=== PATIENT | male | born 1975 | race Caucasian/White ===

== ENCOUNTER 2024-12-01 20:23 | Emergency (ER) | payer MEDICARE, OTHER ==
[2024-12-01] MEDS: PANTOPRAZOLE 40 MG/10 ML VIAL IVP ONE (21:33)
[2024-12-01] MEDS: ONDANSETRON 4 MG/2 ML VIAL IVP STA ×2 (21:37→22:49)
[2024-12-01] MEDS: MORPHINE SULFATE 4 MG/ML SYRINGE IVP STA (21:38)
--- NOTE | 2024-12-01 21:46 | ED ---
General Adult HPI - General Chief complaint: GI Bleed Stated complaint: Abd Pain, Lightheaded Time Seen by Provider: 12/01/24 20:50 Source: patient Mode of arrival: ambulatory Limitations: no limitations - History of Present Illness Initial comments: Patient is a 49-year-old gentleman past medical history of bleeding peptic ulcer presenting today for concerns for GI bleed. States that he felt nauseous earlier an began experiencing burning epigastric pain and had an episode of nonbloody nonbilious emesis. He then later had a single soft black tarry stool. Shortly after this he noticed some bright red blood running into the toilet, pt estimates about 1/2 teaspoon of blood. Noted associated lightheadedness so was brought to the ER. States he had a ruptured peptic ulcer a few years ago while he was in [place]. He denies frequent NSAID use or alcohol use. Is not on blood thinners. Denies fevers. Endorses chills. Currently denies dizziness /lightheadedness, shortness of breath, chest pain. Denies dysuria or hematuria. No diarrhea. Denies any numbness or focal weakness. Endorses generalized weakness. No other prior abdominal surgeries. - Related Data Home Medications Medication Instructions Recorded Confirmed Verapamil HCl [Verelan] 360 mg PO DAILY 05/05/15 12/02/15 lisinopriL [Zestril] 10 mg PO DAILY 05/05/15 12/02/15 Allergies Allergy/AdvReac Type Severity Reaction Status Date / Time ibuprofen [From Motrin] Allergy Nausea & Verified 12/01/24 20:47 Vomiting naproxen Allergy Dyspnea Verified 12/01/24 20:47 penicillin V Allergy Anaphylaxis Verified 12/01/24 20:47 Review of Systems ROS Statement: Those systems with pertinent positive or pertinent negative responses have been documented in the HPI. ROS Other: All systems not noted in ROS Statement are negative. Past Medical History Past Medical History: Hyperlipidemia, Hypertension Additional Past Medical History / Comment(s): chronic neck pain, bleeding ulcer History of Any Multi-Drug Resistant Organisms: MRSA Date of last positivie culture/infection: 2017 MDRO Source:: right leg Past Surgical History: Joint Replacement Additional Past Surgical History / Comment(s): Rt BKA, bleeding ulcer- clamp placed Past Psychological History: Anxiety, Bipolar, PTSD Smoking Status: Current every day smoker Past Alcohol Use History: None Reported Past Drug Use History: Heroin, Marijuana, Opiates General Exam - General Exam Comments Initial Comments: PE: CONSTITUTIONAL: No apparent distress, well appearing SKIN: Warm, dry, no jaundice, hives or petechiae EYES: Pupils are equally round, extraocular movements intact without nystagmus, clear conjunctiva, non-icteric sclera HENT: Normocephalic, atraumatic, moist mucus membranes, oropharynx clear without exudates NECK: , Full range of motion, normal appearance PULMONARY: Clear to auscultation without wheezes, rhonchi, or rales, normal excursion, no accessory muscle use and no stridor CARDIOVASCULAR: Regular rate, rhythm, normal S1 and S2. No appreciated murmurs, rubs or gallops. Strong radial pulses with intact distal perfusion. No lower extremity edema GASTROINTESTINAL: Soft, active bowel sounds throughout, non-distended, no palpable masses, mild epigastric TTP without guarding, no hepatosplenomegaly GENITOURINARY: Rectal exam performed with ADONIS Pacheco as cloth designer, few external hemorrhoids, no active bleeding, black stool on SAMIR MUSCULOSKELETAL: Extremities have no gross deformity, no edema, redness, or swelling. NEUROLOGIC:_a/o x 3, GCS 15, normal mentation and speech. Moves all extremities x 4 without motor or sensory deficit PSYCHIATRIC:_normal mood and affect, thought process is clear and linear Limitations: no limitations Course Vital Signs 12/01/24 12/01/24 20:43 22:35 Temperature 98.6 F Pulse Rate 105 H 83 Respiratory 15 18 Rate Blood Pressure 146/104 148/104 O2 Sat by Pulse 99 99 Oximetry EKG Findings - EKG Comments: EKG Findings:: Sinus rhythm, rate 79 bpm, intervals within acceptable limits, no significant ST elevations or depressions, no arrhythmia, no ischemic changes Medical Decision Making - Medical Decision Making Was pt. sent in by a medical professional or institution (, PA, MANAGEMENT ANALYST, urgent care, hospital, or halfway...) When possible be specific @[facility] Did you speak to anyone other than the patient for history (EMS, parent, family, police, friend...)? What history was obtained from this source @ -No Did you review nursing and triage notes (agree or disagree)? Why? @ -I reviewed nursing and triage notes disagree and that patient states symptoms started today. Were old charts reviewed (outside hosp., previous admission, EMS record, old EKG, old radiological studies, urgent care reports/EKG's, halfway records)? Report findings @ -Medical records reviewed no prior imaging available for review Differential Diagnosis (chest pain, altered mental status, abdominal pain women, abdominal pain men, vaginal bleeding, weakness, fever, dyspnea, syncope, headache, dizziness, GI bleed, back pain, seizure, CVA, palpatations, mental health, musculoskeletal)? @Differential GI Bleed: Esophageal varices, aortoenteric fistula, Aspen-Hughes, gastritis, peptic ulcer disease, diverticulosis, inflammatory bowel disease, hemorrhoids, fissure, colitis, malignancy, Meckel's diverticulum, this is not meant to be an all- inclusive list. EKG interpreted by me (3pts min.). @ -As above X-rays interpreted by me (1pt min.). @ -None done CT interpreted by me (1pt min.). @ -None done U/S interpreted by me (1pt. min.). @ -None done What testing was considered but not performed or refused? (CT, X-rays, U/S, labs)? Why? @ -[CT abdomen pelvis GI bleed was considered however patient is not currently having any bloody stools, abdominal exam is overall benign, mildly tachycardic on arrival but vital signs overall are stable therefore do not think CT GI bleed study would provide any further benefit at this point What meds were considered but not given or refused? Why? @ -None Did you discuss the management of the patient with other professionals (professionals i.e. , PA, MANAGEMENT ANALYST, lab, RT, psych nurse, social and political studies professor, senior salesforce developer, teacher, student liaison officer, casey saw operator)? Give summary Case discussed with Dr. Tyler, general surgery, request patient be transferred to facility with GI Was smoking cessation discussed for >3mins.? @ -No Was critical care preformed (if so, how long)? @ -No Were there social determinants of health that impacted care today? How? (Homelessness, low income, unemployed, alcoholism, drug addiction, transportation, low edu. Level, literacy, decrease access to med. care, senior living, rehab)? @ -No Was there de-escalation of care discussed even if they declined (Discuss DNR or withdrawal of care, Hospice)? @ -No What co-morbidities impacted this encounter? (DM, HTN, Smoking, COPD, CAD, Cancer, CVA, ARF, Chemo, Hep., AIDS, mental health diagnosis, sleep apnea, morbid obesity)? Hypertension Was patient admitted / discharged? Hospital course, mention meds given and route, prescriptions, significant lab abnormalities, going to OR and other pertinent info. @ Transfer to [facility] 49-year-old gentleman history of prior ruptured peptic ulcer presenting today for epigastric pain, nausea, black tarry stool x 1.Vital signs on arrival showed mild tachycardia with heart rate 105, otherwise vital signs are stable. Exam showed mild epigastric tenderness palpat ion without palpable masses, distention or guarding. Rectal exam was performed and showed few external hemorrhoids, black stool on SAMIR. Will be sent for occult testing. Patient given pain control, Protonix, fluids, will obtain CBC, CMP, troponin, EKG, lactic type and cross. Labs are significant for very mild leukocytosis white blood count 10.52 without elevated neutrophils, hemoglobin is within except limits 13.1, no prior for comparison bicarb 17, BUN 22 slightly elevated, may be secondary to GI bleed, troponin undetectable, lipase 120 within acceptable limits. Patient endorses mildly improved pain on reassessment. I do feel patient requires admission due to history of prior ruptured peptic ulcer. Given stable vitals and overall benign exam, I do not feel that is the cause of his symptoms currently however is hemoccult positive. I discussed patient's case with Dr. Tyler, general surgery, who requested pt be sent to facility with GI specialist available. Updated pt to findings. He is agreeable with plan for transfer. Discussed with Dr. Riley, kindly accepts pt for transfer. As pt is in PD custody, questioned if pt stable to transfer via PD. Vitals are stable and pt has had no bleeding episodes since being in the ED. I feel transver via PD is reasonable. Pt transferred in stable condition . Undiagnosed new problem with uncertain prognosis? @ -No Drug Therapy requiring intensive monitoring for toxicity (Heparin, Nitro, Insulin, Cardizem)? @ -No Were any procedures done? @ -No Diagnosis/symptom? @Upper GI bleed Acute, or Chronic, or Acute on Chronic? Acute Uncomplicated (without systemic symptoms) or Complicated (systemic symptoms)? @ -Complicated Side effects of treatment? @ -No Exacerbation, Progression, or Severe Exacerbation? @ -No Poses a threat to life or bodily function? How? (Chest pain, USA, AR, pneumonia, PE, COPD, DKA, ARF, appy, cholecystitis, CVA, Diverticulitis, Homicidal, Suicidal, threat to staff... and all critical care pts) @ -Possibly - Lab Data Result diagrams: 12/01/24 21:33 12/01/24 21:33 Lab Results 12/01/24 12/01/24 12/01/24 Range/Units 21:23 21: 21:33 WBC 10.52 H (4.50-10.00) 10*3/uL RBC 4.20 L (4.40-5.60) 10*6/uL Hgb 13.1 (13.0-17.0) g/dL Hct 37.0 L (39.6-50.0) % MCV 88.1 (80.0-97.0) fL MCH 31.2 (27.0-32.0) pg MCHC 35.4 (32.0-37.0) g/dL Plt Count 485 H (140-440) 10*3/uL MPV 9.1 L (9.5-12.2) fL Immature Gran % (Auto) 0.4 % Neutrophils % 70.0 % Lymphocytes % 20.2 % Monocytes % 8.9 % Eosinophils % 0.1 % Basophils % 0.4 % Immature Gran # 0.04 (0.00-0.04) 10*3/uL Neutrophils # 7.36 (1.80-7.70) 10*3/uL Lymphocytes # 2.13 (0.90-5.00) 10*3/uL Monocytes # 0.94 (0.20-1.00) 10*3/uL Eosinophils # 0.01 L (0.04-0.35) 10*3/uL Basophils # 0.04 (0.00-0.10) 10*3/uL PT (10.0-12.5) sec INR (<1.2) APTT (22.0-30.0) sec Sodium (137-145) mmol/L Potassium (3.5-5.1) mmol/L Chloride (98-107) mmol/L Carbon Dioxide (22-30) mmol/L Anion Gap mmol/L BUN (9-20) mg/dL Creatinine (0.66-1.25) mg/dL Est GFR (CKD-EPI)AfAm (>60 ml/min/1.73 sqM) Est GFR (CKD-EPI)NonAf (>60 ml/min/1.73 sqM) Glucose (74-99) mg/dL Plasma Lactic Acid Jhon (0.7-2.0) mmol/L Calcium (8.4-10.2) mg/dL Total Bilirubin (0.2-1.3) mg/dL AST (17-59) U/L ALT (4-49) U/L Alkaline Phosphatase (38-126) U/L Troponin I (0.000-0.034) ng/mL Total Protein (6.3-8.2) g/dL Albumin (3.5-5.0) g/dL Lipase (23-300) U/L Stool Occult Blood (Negative) Blood Type B Positive Blood Type Confirm B Positive Blood Type Recheck No Previous Record Bld Type Recheck Status CABO Indicated Antibody Screen NEGATIVE Spec Expiration Date 12/04/2024 - 232212/01/24 12/01/24 12/01/24 Range/Units 21:33 21:33 21:33 WBC (4.50-10.00) 10*3/uL RBC (4.40-5.60) 10*6/uL Hgb (13.0-17.0) g/dL Hct (39.6-50.0) % MCV (80.0-97.0) fL MCH (27.0-32.0) pg MCHC (32.0-37.0) g/dL Plt Count (140-440) 10*3/uL MPV (9.5-12.2) fL Immature Gran % (Auto) % Neutrophils % % Lymphocytes % % Monocytes % % Eosinophils % % Basophils % % Immature Gran # (0.00-0.04) 10*3/uL Neutrophils # (1.80-7.70) 10*3/uL Lymphocytes # (0.90-5.00) 10*3/uL Monocytes # (0.20-1.00) 10*3/uL Eosinophils # (0.04-0.35) 10*3/uL Basophils # (0.00-0.10) 10*3/uL PT 11.0 (10.0-12.5) sec INR 1.0 (<1.2) APTT 22.2 (22.0-30.0) sec Sodium 137 (137-145) mmol/L Potassium 5.0 (3.5-5.1) mmol/L Chloride 107 (98-107) mmol/L Carbon Dioxide 17 L (22-30) mmol/L Anion Gap 13 mmol/L BUN 22 H (9-20) mg/dL Creatinine 0.73 (0.66-1.25) mg/dL Est GFR (CKD-EPI)AfAm >90 (>60 ml/min/1.73 sqM) Est GFR (CKD-EPI)NonAf >90 (>60 ml/min/1.73 sqM) Glucose 92 (74-99) mg/dL Plasma Lactic Acid Jhon 1.0 (0.7-2.0) mmol/L Calcium 9.4 (8.4-10.2) mg/dL Total Bilirubin 0.6 (0.2-1.3) mg/dL AST 20 (17-59) U/L ALT 12 (4-49) U/L Alkaline Phosphatase 61 (38-126) U/L Troponin I (0.000-0.034) ng/mL Total Protein 7.7 (6.3-8.2) g/dL Albumin 4.3 (3.5-5.0) g/dL Lipase 120 (23-300) U/L Stool Occult Blood (Negative) Blood Type Blood Type Confirm Blood Type Recheck Bld Type Recheck Status Antibody Screen Spec Expiration Date 12/01/24 12/01/24 Range/Units 21:33 22:23 WBC (4.50-10.00) 10*3/uL RBC (4.40-5.60) 10*6/uL Hgb (13.0-17.0) g/dL Hct (39.6-50.0) % MCV (80.0-97.0) fL MCH (27.0-32.0) pg MCHC (32.0-37.0) g/dL Plt Count (140-440) 10*3/uL MPV (9.5-12.2) fL Immature Gran % (Auto) % Neutrophils % % Lymphocytes % % Monocytes % % Eosinophils % % Basophils % % Immature Gran # (0.00-0.04) 10*3/uL Neutrophils # (1.80-7.70) 10*3/uL Lymphocytes # (0.90-5.00) 10*3/uL Monocytes # (0.20-1.00) 10*3/uL Eosinophils # (0.04-0.35) 10*3/uL Basophils # (0.00-0.10) 10*3/uL PT (10.0-12.5) sec INR (<1.2) APTT (22.0-30.0) sec Sodium (137-145) mmol/L Potassium (3.5-5.1) mmol/L Chloride (98-107) mmol/L Carbon Dioxide (22-30) mmol/L Anion Gap mmol/L BUN (9-20) mg/dL Creatinine (0.66-1.25) mg/dL Est GFR (CKD-EPI)AfAm (>60 ml/min/1.73 sqM) Est GFR (CKD-EPI)NonAf (>60 ml/min/1.73 sqM) Glucose (74-99) mg/dL Plasma Lactic Acid Jhon (0.7-2.0) mmol/L Calcium (8.4-10.2) mg/dL Total Bilirubin (0.2-1.3) mg/dL AST (17-59) U/L ALT (4-49) U/L Alkaline Phosphatase (38-126) U/L Troponin I <0.012 (0.000-0.034) ng/mL Total Protein (6.3-8.2) g/dL Albumin (3.5-5.0) g/dL Lipase (23-300) U/L Stool Occult Blood Positive (Negative) Blood Type Blood Type Confirm Blood Type Recheck Bld Type Recheck Status Antibody Screen Spec Expiration Date Disposition Clinical Impression: Melena, Hematochezia, Gastritis Disposition: OTHER INSTITUTION NOT DEFINED Condition: Stable Referrals: None,Stated [Primary Care Provider] - 1-2 days - Out of Hospital Transfer - Req. Specs Out of Hospital Transfer - Requested Specifics: Other Emergency Center ([facility]
[2024-12-01 21:54] LABS: Basophils # (A) 0.04 10*3/uL (0.00-0.10); Basophils % (A) 0.4 %; Eosinophils # (A) 0.01 10*3/uL (0.04-0.35); Eosinophils % (A) 0.1 %; HCT 37.0 % (39.6-50.0); HGB 13.1 g/dL (13.0-17.0); Lymphocytes # (A) 2.13 10*3/uL (0.90-5.00); Lymphocytes % (A) 20.2 %; MCH 31.2 pg (27.0-32.0); MCHC 35.4 g/dL (32.0-37.0); MCV 88.1 fL (80.0-97.0); Monocytes # (A) 0.94 10*3/uL (0.20-1.00); Monocytes % (A) 8.9 %; Neutrophils # (A) 7.36 10*3/uL (1.80-7.70); Neutrophils % (A) 70.0 %; Platelet Count 485 10*3/uL (140-440); RBC 4.20 10*6/uL (4.40-5.60); RDW 14.0 % (11.5-14.5); WBC 10.52 10*3/uL (4.50-10.00)
[2024-12-01 22:12] LABS: ALT 12 U/L (4-49); AST 20 U/L (17-59); African American GFR (CKD) >90 (>60 ml/min/1.73 sqM); Albumin 4.3 g/dL (3.5-5.0); Alkaline Phosphatase 61 U/L (38-126); Anion Gap 13 mmol/L; Blood Urea Nitrogen 22 mg/dL (9-20); Calcium 9.4 mg/dL (8.4-10.2); Carbon Dioxide 17 mmol/L (22-30); Chloride 107 mmol/L (98-107); Glucose 92 mg/dL (74-99); Lipase 120 U/L (23-300); Non-African American GFR(CKD) >90 (>60 ml/min/1.73 sqM); Potassium 5.0 mmol/L (3.5-5.1); Sodium 137 mmol/L (137-145); Total Protein 7.7 g/dL (6.3-8.2)
[2024-12-01 22:13] LABS: INR 1.0 (<1.2); Partial Thromboplastin Time 22.2 sec (22.0-30.0); Prothrombin Time 11.0 sec (10.0-12.5)
[2024-12-01 22:37] VITALS: RESP 18
[2024-12-01] MEDS: FAMOTIDINE 20 MG/2 ML VIAL IV STA (22:49)
[2024-12-01] MEDS: MORPHINE SULFATE 2 MG/ML SYRINGE IVP STA (22:50)
[2024-12-01 23:33] VITALS: BP 154/103; PULSE 90; TEMP 98.3
== END 2024-12-01 23:33 | disposition other institution (70) ==
LOC: EC 20:23
DX: K29.71 Gastritis, unspecified, with bleeding (principal); K92.1 Melena; I10 Essential (primary) hypertension; F17.200 Nicotine dependence, unspecified, uncomplicated; Z88.0 Allergy status to penicillin; Z88.6 Allergy status to analgesic agent
CPT/HCPCS: 36415; 93005; 86900; 86901; 80053; 83605; 83690; 84484; 85025; 85610; 85730; 86850; 82272; 99285; 96374; 96375 ×3; 96376 ×2; J2270 ×2; J2405; J2470; J1308